=== PATIENT | female | born 1990 | race Asian ===

== ENCOUNTER → 2018-12-12 | Outpatient (CLI) | payer BC ==
[2018-12-14 22:07] LABS: CHLAMYDIA TRACHOMATIS, NAA Negative (Negative); NEISSERIA GONORRHOEAE, NAA Negative (Negative)
== END | disposition home or self-care (01) ==
LOC: LAB 17:18 → LAB SHORT 17:18
PROVIDERS: Obstetrics & Gynecology
DX: Z34.83 Encounter for supervision of other normal pregnancy, third trimester (principal); Z3A.36 36 weeks gestation of pregnancy
CPT/HCPCS: 87081; 87653

== ENCOUNTER 2019-01-08 20:18 | Inpatient (IN) | payer BC ==
[~2019-01-08] VITALS: Ht 149.9 cm; Wt 0.1 kg
[2019-01-08] MEDS ORDERED: AMOX250 PO (20:31)
[2019-01-08] MEDS ORDERED: Verotin-Gr Cap1 EACH PO (20:31)
[2019-01-08 21:04] LABS: BASOPHILS ABSOLUTE AUTO 0.05 K/mm3 (0.00-0.23); BASOPHILS PERCENT AUTO 1 % (0-2); EOSINOPHILS ABSOLUTE AUTO 0.08 K/mm3 (0.00-0.68); EOSINOPHILS PERCENT AUTO 1 % (0-6); Hematocrit 40.8 % (33.0-51.0); Hemoglobin 13.5 g/dL (11.5-16.0); IMMATURE GRAN ABSOLUTE AUTO 0.15 K/mm3 (0.00-0.10); IMMATURE GRAN PERCENT AUTO 2 % (0-1); LYMPHOCYTES PERCENT AUTO 20 % (21-46); MONOCYTES ABSOLUTE AUTO 0.71 K/mm3 (0.16-1.47); MONOCYTES PERCENT AUTO 7 % (4-13); Mean Corpuscular HGB Conc 33.1 g/dL (31.5-36.5); Mean Corpuscular Volume 94 fL (80-100); Mean Platelet Volume 9.1 fL (9.1-12.4); NEUTROPHILS ABSOLUTE AUTO 6.99 K/mm3 (1.96-9.15); NEUTROPHILS PERCENT AUTO 70 % (41-73); Platelet Count 211 K/mm3 (150-400); RDW Coefficient Variation 13.3 % (11.7-14.2); RDW Standard Deviation 46.3 fL (35.1-46.3); Red Blood Cell Count 4.35 M/mm3 (3.80-5.20); White Blood Cell Count 9.98 K/mm3 (4.00-11.30)
--- NOTE | 2019-01-09 21:04 | NUR ---
PT IS EMOTIONAL AFTER RECIEVING NEWS THAT HER COUSINS 7 MONTH OLD BABY TODAY. PT WOULD LIKE A SLEEPING PILL TONIGHT TO HELP HER REST.
--- NOTE | 2019-01-10 15:14 | NUR ---
ASSIST MOM HAS A HX OF BREAST AUGMENTATION DISCUSSED IMPORTANCE OF MONITORING CLOSELY FOR MASISITS AND BABY OUPUT. MOM TOOK THE CLASS AND REPORTS FEEDING IS GOING WELL.
[2019-01-11 12:04] LABS: PCO2 Cord - Arterial 48.1 mmHg (40-50); PO2 Cord - Arterial < 45 mmHg (16-20); pH Cord - Arterial 7.23 (7.28-7.35)
[2019-01-11 12:08] LABS: PCO2 Cord - Venous 40.2 mmHg (40-50); PO2 Cord - Venous 18.7 mmHg (28-32); pH Umbilical Cord - Venous 7.28 (7.26-7.35)
--- NOTE | 2019-01-11 12:16 | NUR ---
01/11/19 1216 Mackenzie Tian [id number] PT ARRIVED TO OR ON [facility] WITH CAIN CATHETER IN PLACE DRAINING DARK YELLOW WRINE
--- NOTE | 2019-01-11 12:55 | NUR ---
RESTING IN PACU. RESPONDS TO COMMANDS. COMFORTABLE. BABY IN NSY AT PRESENT
--- NOTE | 2019-01-11 16:43 | NUR ---
PT PUMPED AT 1600 BOTH SIDES FOR 20 MINUTES WITH PUMP BROUGHT FROM HOME. 2-3 ML EXPRESSED AND TAKEN TO NURSERY FOR NB.
--- NOTE | 2019-01-12 00:47 | NUR ---
RECIEVED REPORT FROM RIKY DASILVA AND EZRA DASILVA. ASSUMED PATIENT CARE AT [phone].
--- NOTE | 2019-01-12 05:21 | NUR ---
ASKED PATIENT IF SHE WAS WILLING TO TRY TO GET IN THE SHOWER. PATIENT STATES THAT SHE DOES NOT FEEL READY NOW AND WANTS TO TRY LATER IN THE DAY.
[2019-01-12 06:04] LABS: Hematocrit 29.8 % (33.0-51.0); Hemoglobin 9.9 g/dL (11.5-16.0); Mean Corpuscular HGB 30.8 pg (26.0-34.0); Mean Corpuscular HGB Conc 33.2 g/dL (31.5-36.5); Mean Corpuscular Volume 93 fL (80-100); Platelet Count 165 K/mm3 (150-400); RDW Coefficient Variation 13.9 % (11.7-14.2); RDW Standard Deviation 46.9 fL (35.1-46.3); Red Blood Cell Count 3.21 M/mm3 (3.80-5.20); White Blood Cell Count 13.16 K/mm3 (4.00-11.30)
[2019-01-12 06:26] LABS: BAND PERCENT MAN 40 % (0-8); BASOPHILS PERCENT MAN 0 % (0-2); EOSINOPHILS PERCENT MAN 0 % (0-6); LYMPHOCYTES ABSOLUTE MAN 1.57 K/mm3 (0.84-5.20); LYMPHOCYTES PERCENT MAN 12 % (21-46); MONOCYTES ABSOLUTE MAN 0.92 K/mm3 (0.16-1.47); MONOCYTES PERCENT MAN 7 % (4-13); NEUTROPHILS ABSOLUTE MAN 10.65 K/mm3 (1.96-9.15); SEG NEUTROPHILS PERCENT MAN 41 % (41-73); TOTAL CELLS COUNTED 100
--- NOTE | 2019-01-13 10:33 | NUR ---
ABD IS VERY DISTENDED, MILK OF MAG, COLACE AND SIMETHICONE GIVEN. PT STATES THAT ABD IS LESS DISTENDED THAN LAST NIGHT, STATES SHE FEEL LIKE ITS 'GETTING BETTER". RN WILL CONTINUE TO MONITOR AND REPORT TO PROVIDER.
[2019-01-13 13:00] LABS: BASOPHILS ABSOLUTE AUTO 0.06 K/mm3 (0.00-0.23); BASOPHILS PERCENT AUTO 0 % (0-2); Hemoglobin 9.6 g/dL (11.5-16.0); LYMPHOCYTES ABSOLUTE AUTO 1.15 K/mm3 (0.84-5.20); LYMPHOCYTES PERCENT AUTO 9 % (21-46); MONOCYTES ABSOLUTE AUTO 0.43 K/mm3 (0.16-1.47); MONOCYTES PERCENT AUTO 3 % (4-13); Mean Corpuscular HGB 31.9 pg (26.0-34.0); Mean Corpuscular HGB Conc 34.3 g/dL (31.5-36.5); Mean Corpuscular Volume 93 fL (80-100); Mean Platelet Volume 8.9 fL (9.1-12.4); Platelet Count 222 K/mm3 (150-400); RDW Standard Deviation 47.7 fL (35.1-46.3); Red Blood Cell Count 3.01 M/mm3 (3.80-5.20); White Blood Cell Count 13.39 K/mm3 (4.00-11.30)
[2019-01-13 13:03] LABS: EOSINOPHILS PERCENT AUTO 1 % (0-6); IMMATURE GRAN ABSOLUTE AUTO 0.24 K/mm3 (0.00-0.10); IMMATURE GRAN PERCENT AUTO 2 % (0-1); NEUTROPHILS ABSOLUTE AUTO 11.41 K/mm3 (1.96-9.15); NEUTROPHILS PERCENT AUTO 85 % (41-73)
[2019-01-13] MEDS ORDERED: AMOCLA500 PO (13:46)
--- NOTE | 2019-01-13 14:21 | NUR ---
PT DISCHARGED HOME. PRESCRIPTIONS FOR IBUPROFEN, PERCOCET AND AUGMENTIN GIVEN TO TO FILL. DISCHARGE INSTRUCTIONS REVIEWED WITH PT AND SO, BOTH VERBALIZED UNDERSTANDING AND DENY ANY FURTHER QUESTIONS OR CONCERNS. NO ACUTE DISTRESS NOTED.
== END 2019-01-13 15:50 | disposition home or self-care (01) | DRG 788 ==
LOC: BC 20:18
PROVIDERS: Nurse Practitioner Obstetrics & Gynecology; ADMIT Obstetrics & Gynecology
PROC: 6A550ZT Pheresis of Cord Blood Stem Cells, Single (ICD-10-PCS; 2019-01-11)
PROC: 10D00Z1 Extraction of Products of Conception, Low, Open Approach (ICD-10-PCS; principal; 2019-01-11 13:00)
DX: O48.0 Post-term pregnancy (principal); O62.2 Other uterine inertia; Z3A.40 40 weeks gestation of pregnancy; Z37.0 Single live birth
CPT/HCPCS: 36415; 51702; 82803; 85025; 88307; 88312; C9113; J0290; J0330; J0690; J0694; J1885; J2210; J2405; J2590; J2704; J2765; J3010; J7120

== ENCOUNTER 2019-01-15 15:05 | Observation (INO) | payer BC ==
[~2019-01-15] VITALS: Ht 149.9 cm; Wt 60.2 kg
[~2019-01-15 15:05] MED LIST: AMOCLA500 PO; AMOX250 PO; Verotin-Gr Cap1 EACH PO
--- NOTE | 2019-01-15 16:19 | NUR ---
PPFU VISIT. HAS MD INTERIANO APPT. ABDOMEN IS SWOLLEN TIGHT, BOWEL SOUNDS HEARD UPPER LEFT AND RIGHT QUANDRANTS ONLY. TAKING AUGMENTIN BID. MOTRIN 800MG 3X/DAY AND 1-2 PERCOCET Q4-5 HOURS, STILL QUITE PAINFUL. INCISION IS HEALING WELL, AREA ABOVE INCISION IS WARM TO TOUCH AND REDDENED, NOT BRIGHT RED THOUGH, APPROX 4X10 CM AREA. HAS HAD 101.9 TEMPS THE LAST 2 EVENINGS. TODAY HAS LOST HER APPETITE AND IS FEELING SOMEWHAT NAUSEATIOUS. HAD SALINE ENEMA THIS MORNING WITH SOME RESULTS AND HAS PASSED SOME FLATUS YESTERDAY. TAKING MILK OF MAGNESIA QPM, AND SENOKOT. MILK IS COMING IN, TRANSFERRED 15 GMS IN 15 MINUTES AT BREAST. TOOK ONLY 5CC OF OFFERED SNS FORMULA AND HE WAS SATISFIED. SHE HAS BEEN PUMPING FOR 10 MINUTES PC AND IS STILL GETTING ONLY A COUPLE CC OF EBM. INSTRUCT TO CONTINUE WITH SNS UNTIL SHE IS ABLE TO PUMP AT LEAST 15CC/BREAST AFTER A FEEDING. DR OCHOA NOTIFIED OF ASSESSMENT, ORDERS RECEIVED, TRANSFERRED TO ROOM 110 FOR OUTPATIENT IVF. QUESTIONS ANSWERED.
[2019-01-15 17:35] LABS: BASOPHILS ABSOLUTE AUTO 0.08 K/mm3 (0.00-0.23); BASOPHILS PERCENT AUTO 1 % (0-2); EOSINOPHILS ABSOLUTE AUTO 0.22 K/mm3 (0.00-0.68); EOSINOPHILS PERCENT AUTO 2 % (0-6); Hematocrit 30.7 % (33.0-51.0); Hemoglobin 9.9 g/dL (11.5-16.0); IMMATURE GRAN PERCENT AUTO 8 % (0-1); LYMPHOCYTES ABSOLUTE AUTO 1.78 K/mm3 (0.84-5.20); LYMPHOCYTES PERCENT AUTO 14 % (21-46); MONOCYTES ABSOLUTE AUTO 0.97 K/mm3 (0.16-1.47); MONOCYTES PERCENT AUTO 8 % (4-13); Mean Corpuscular HGB 30.7 pg (26.0-34.0); Mean Corpuscular HGB Conc 32.2 g/dL (31.5-36.5); Mean Corpuscular Volume 95 fL (80-100); Mean Platelet Volume 8.6 fL (9.1-12.4); NEUTROPHILS PERCENT AUTO 67 % (41-73); NRBC ABSOLUTE 0.03 K/mm3 (0.00-0.02); NRBC Auto 0.2 /100 WBC (0.0-0.2); Platelet Count 317 K/mm3 (150-400); RDW Standard Deviation 49.8 fL (35.1-46.3); Red Blood Cell Count 3.22 M/mm3 (3.80-5.20); White Blood Cell Count 12.35 K/mm3 (4.00-11.30)
[2019-01-15] MEDS ORDERED: Percocet 5-3251 EACH PO (18:10)
[2019-01-15] MEDS ORDERED: IBUP800 PO (18:11)
--- NOTE | 2019-01-15 18:22 | NUR ---
HERE FROM FOLLOW UP CLINIC. CONSTIPATION. ALSO STATES FEVER IN THE EVENING X 2 NIGHTS 101.
[2019-01-16 06:34] LABS: Hematocrit 25.1 % (33.0-51.0); Hemoglobin 8.2 g/dL (11.5-16.0); Mean Corpuscular HGB 30.5 pg (26.0-34.0); Mean Corpuscular HGB Conc 32.7 g/dL (31.5-36.5); Mean Corpuscular Volume 93 fL (80-100); Mean Platelet Volume 8.6 fL (9.1-12.4); NRBC ABSOLUTE 0.03 K/mm3 (0.00-0.02); NRBC Auto 0.3 /100 WBC (0.0-0.2); Platelet Count 288 K/mm3 (150-400); RDW Standard Deviation 47.8 fL (35.1-46.3); Red Blood Cell Count 2.69 M/mm3 (3.80-5.20); White Blood Cell Count 10.32 K/mm3 (4.00-11.30)
[2019-01-16 06:54] LABS: Alanine Aminotransfer (ALT/SGP 14 U/L (12-78); Albumin, Blood 1.6 g/dL (3.4-5.0); Albumin/Globulin Ratio 0.4 (0.8-1.8); Alk Phos 146 U/L (50-136); Anion Gap 4 mmol/L (6-16); Aspartate Aminotrans (AST/SGOT 19 U/L (12-37); Bilirubin, Total 0.4 mg/dL (0.1-1.0); Blood Urea Nitrogen 7 mg/dL (8-24); Bun/Creatinine Ratio 11.6 (12.0-20.0); CO2, Blood 26 mmol/L (21-32); Calcium, Blood 7.6 mg/dL (8.5-10.1); Chloride, Blood 108 mmol/L (98-108); Creatinine, Blood 0.61 mg/dL (0.40-1.00); Globulin, Blood 3.7 g/dL (2.2-4.0); Glomerular Filtration Rate >60 (60-); Glucose, Blood 68 mg/dL (70-99); Potassium, Blood 3.7 mmol/L (3.5-5.5); Sodium, Blood 138 mmol/L (136-145); Total Protein, Blood 5.3 g/dL (6.4-8.2)
[2019-01-16 06:56] LABS: BAND PERCENT MAN 5 % (0-8); BASOPHILS PERCENT MAN 0 % (0-2); EOSINOPHILS PERCENT MAN 2 % (0-6); LYMPHOCYTES ABSOLUTE MAN 1.23 K/mm3 (0.84-5.20); LYMPHOCYTES PERCENT MAN 12 % (21-46); MONOCYTES PERCENT MAN 2 % (4-13); MYELOCYTE PERCENT MAN 3 % (0-0); NEUTROPHILS ABSOLUTE MAN 8.35 K/mm3 (1.96-9.15); SEG NEUTROPHILS PERCENT MAN 76 % (41-73); TOTAL CELLS COUNTED 100
--- NOTE | 2019-01-16 09:13 | NUR ---
MD here, in room. Updated about loose, mix colored stool. Pt had reported "grumbling" in abdomen, bowel tones hypoactive. Pt had loose stool just prior to assessment at 0830. Denies other complaints at this time. Pt to d/c home.
--- NOTE | 2019-01-16 09:45 | NUR ---
Printed d/c instructions given to pt, reviewed. Deny additional questions/concerns at this time. Pt is going to feed nb and then d/c home.
[2019-01-16] MEDS ORDERED: Flagyl500 MG PO (23:36)
== END 2019-01-16 10:15 | disposition home or self-care (01) ==
LOC: OBS 15:05 → BC 17:26 → OBS 18:10 → BC 18:12
PROVIDERS: ADMIT Obstetrics & Gynecology
DX: O86.4 Pyrexia of unknown origin following delivery (principal); O99.63 Diseases of the digestive system complicating the puerperium; K56.7 Ileus, unspecified
CPT/HCPCS: 36415; 80053; 85025; 96365; 96366; G0378; J2543; J7120

== ENCOUNTER 2019-01-16 20:44 | Emergency (ER) | payer BC ==
[~2019-01-16] VITALS: Ht 149.9 cm; Wt 56.7 kg
[~2019-01-16 20:44] MED LIST changes: +IBUP800 PO; +Percocet 5-3251 EACH PO
[2019-01-16 21:56] LABS: Hematocrit 30.5 % (33.0-51.0); Mean Corpuscular HGB 31.1 pg (26.0-34.0); Mean Corpuscular HGB Conc 32.8 g/dL (31.5-36.5); Mean Corpuscular Volume 95 fL (80-100); Mean Platelet Volume 8.7 fL (9.1-12.4); NRBC ABSOLUTE 0.06 K/mm3 (0.00-0.02); NRBC Auto 0.5 /100 WBC (0.0-0.2); Platelet Count 400 K/mm3 (150-400); RDW Coefficient Variation 13.8 % (11.7-14.2); Red Blood Cell Count 3.22 M/mm3 (3.80-5.20); White Blood Cell Count 11.85 K/mm3 (4.00-11.30)
[2019-01-16 22:06] LABS: Source, Urine Clean Catch
[2019-01-16 22:11] LABS: Bilirubin, Urine Neg (Neg); Blood, Urine 3+ (Neg); Glucose Qualitative, Urine Neg (Neg); Ketones, Urine 2+ (Neg); Leukocyte Esterase, Urine 1+ (Neg); Nitrite, Urine Neg (Neg); Protein, Urine Neg (Neg); Specific Gravity, Urine 1.005 (1.003-1.022); Urobilinogen, Urine NORM (Normal)
[2019-01-16 22:21] LABS: BAND PERCENT MAN 12 % (0-8); BASOPHILS PERCENT MAN 0 % (0-2); EOSINOPHILS PERCENT MAN 0 % (0-6); LYMPHOCYTES ABSOLUTE MAN 1.65 K/mm3 (0.84-5.20); LYMPHOCYTES PERCENT MAN 14 % (21-46); MONOCYTES ABSOLUTE MAN 0.94 K/mm3 (0.16-1.47); MONOCYTES PERCENT MAN 8 % (4-13); NEUTROPHILS ABSOLUTE MAN 9.24 K/mm3 (1.96-9.15); SEG NEUTROPHILS PERCENT MAN 66 % (41-73); TOTAL CELLS COUNTED 100
[2019-01-16 22:26] LABS: Alanine Aminotransfer (ALT/SGP 16 U/L (12-78); Albumin, Blood 1.9 g/dL (3.4-5.0); Albumin/Globulin Ratio 0.4 (0.8-1.8); Alk Phos 170 U/L (50-136); Anion Gap 8 mmol/L (6-16); Aspartate Aminotrans (AST/SGOT 21 U/L (12-37); Bilirubin, Total 0.3 mg/dL (0.1-1.0); Blood Urea Nitrogen 7 mg/dL (8-24); Bun/Creatinine Ratio 10.9 (12.0-20.0); CO2, Blood 22 mmol/L (21-32); Calcium, Blood 8.2 mg/dL (8.5-10.1); Chloride, Blood 106 mmol/L (98-108); Creatinine, Blood 0.64 mg/dL (0.40-1.00); Globulin, Blood 4.5 g/dL (2.2-4.0); Glomerular Filtration Rate >60 (60-); Glucose, Blood 79 mg/dL (70-99); Sodium, Blood 136 mmol/L (136-145); Total Protein, Blood 6.4 g/dL (6.4-8.2)
[2019-01-16 22:32] LABS: Appearance, Urine Clear (Clear); Bacteria Few /hpf; Color, Urine Pale Yellow (P-Yellow); Red Blood Cells, Urine Rare /hpf (0-2); Squamous Epithelial Cells Rare /hpf (Few); Transitional Epithelial Cells Few /hpf (0-Rare)
[2019-01-16 22:33] LABS: Troponin I <0.015 ng/mL (0.000-0.040)
[2019-01-16 22:34] LABS: Triiodothyronine, Free 2.25 pg/mL (2.18-3.98)
[2019-01-16] MEDS ORDERED: Flagyl500 MG PO (23:36)
== END 2019-01-17 00:55 | disposition home or self-care (01) ==
LOC: ER 20:44
PROVIDERS: Emergency Medicine
DX: O86.00 Infection of obstetric surgical wound, unspecified (principal); B96.89 Other specified bacterial agents as the cause of diseases classified elsewhere; Z79.899 Other long term (current) drug therapy
CPT/HCPCS: 36415; 71045; 71260; 74177; 80053; 81001; 83605; 83880; 84439; 84443; 84481; 84484; 85025; 87086; 93005; 93010; 96365-59; 96368; 99284-25; J2543; P9612; Q9967

== ENCOUNTER → 2021-04-05 | Outpatient (CLI) | payer BC ==
[~2021-04-05] MED LIST changes: +Flagyl500 MG PO
== END | disposition home or self-care (01) ==
LOC: LAB 16:21 → LAB SHORT 16:21
DX: O09.892 Supervision of other high risk pregnancies, second trimester (principal)
CPT/HCPCS: 87081; 87150

== ENCOUNTER 2021-04-30 05:07 | Inpatient (IN) | payer BC ==
[~2021-04-30] VITALS: Ht 152.4 cm; Wt 58.2 kg
[2021-04-30 05:56] LABS: BASOPHILS ABSOLUTE AUTO 0.04 K/mm3 (0.00-0.23); BASOPHILS PERCENT AUTO 1 % (0-2); EOSINOPHILS PERCENT AUTO 1 % (0-6); Hematocrit 36.3 % (33.0-51.0); Hemoglobin 11.9 g/dL (11.5-16.0); IMMATURE GRAN ABSOLUTE AUTO 0.13 K/mm3 (0.00-0.10); IMMATURE GRAN PERCENT AUTO 2 % (0-1); LYMPHOCYTES ABSOLUTE AUTO 2.58 K/mm3 (0.84-5.20); LYMPHOCYTES PERCENT AUTO 29 % (21-46); MONOCYTES ABSOLUTE AUTO 0.63 K/mm3 (0.16-1.47); MONOCYTES PERCENT AUTO 7 % (4-13); Mean Corpuscular HGB 29.9 pg (26.0-34.0); Mean Corpuscular HGB Conc 32.8 g/dL (31.5-36.5); Mean Corpuscular Volume 91 fL (80-100); Mean Platelet Volume 8.8 fL (9.1-12.4); NEUTROPHILS ABSOLUTE AUTO 5.29 K/mm3 (1.96-9.15); NEUTROPHILS PERCENT AUTO 60 % (41-73); Platelet Count 250 K/mm3 (150-400); RDW Coefficient Variation 15.6 % (11.7-14.2); RDW Standard Deviation 50.6 fL (35.1-46.3); Red Blood Cell Count 3.98 M/mm3 (3.80-5.20); White Blood Cell Count 8.77 K/mm3 (4.00-11.30)
--- NOTE | 2021-04-30 07:54 | NUR ---
04/30/21 0754 Jessica Gregg 2G GIVEN AT 0724 STARTED BY BROWN HINES
--- NOTE | 2021-04-30 14:13 | NUR ---
PT HAVING BREAK THRU PAIN, DR BECKER UPDATED, ROXICODONE 5MG GIVEN NOW
--- NOTE | 2021-04-30 15:03 | NUR ---
REPT TO Jacqueline IVERSON RN
--- NOTE | 2021-04-30 15:12 | NUR ---
Assumed care from Marlon Tian RN
--- NOTE | 2021-04-30 15:56 | NUR ---
Pt resting comfortably with nb skin to skin. Denies needs at this time.
[2021-05-01 05:56] LABS: BASOPHILS ABSOLUTE AUTO 0.04 K/mm3 (0.00-0.23); BASOPHILS PERCENT AUTO 0 % (0-2); EOSINOPHILS ABSOLUTE AUTO 0.16 K/mm3 (0.00-0.68); EOSINOPHILS PERCENT AUTO 1 % (0-6); Hematocrit 34.8 % (33.0-51.0); Hemoglobin 11.3 g/dL (11.5-16.0); IMMATURE GRAN PERCENT AUTO 1 % (0-1); LYMPHOCYTES ABSOLUTE AUTO 2.43 K/mm3 (0.84-5.20); LYMPHOCYTES PERCENT AUTO 19 % (21-46); MONOCYTES ABSOLUTE AUTO 0.76 K/mm3 (0.16-1.47); MONOCYTES PERCENT AUTO 6 % (4-13); Mean Corpuscular HGB 29.1 pg (26.0-34.0); Mean Corpuscular HGB Conc 32.5 g/dL (31.5-36.5); Mean Corpuscular Volume 90 fL (80-100); Mean Platelet Volume 8.8 fL (9.1-12.4); NEUTROPHILS ABSOLUTE AUTO 9.64 K/mm3 (1.96-9.15); NEUTROPHILS PERCENT AUTO 73 % (41-73); Platelet Count 225 K/mm3 (150-400); RDW Coefficient Variation 15.5 % (11.7-14.2); RDW Standard Deviation 50.2 fL (35.1-46.3); Red Blood Cell Count 3.88 M/mm3 (3.80-5.20); White Blood Cell Count 13.13 K/mm3 (4.00-11.30)
[2021-05-01] MEDS ORDERED: DOCU100 PO (15:22)
[2021-05-01] MEDS ORDERED: OXAYDO5 M1 PO (15:23)
[2021-05-01] MEDS ORDERED: IBUP800 PO (15:23)
[2021-05-01] MEDS ORDERED: LANOLIN40 GM TOP (15:23)
--- NOTE | 2021-05-01 18:30 | NUR ---
PRINTED D/C INSTRUCTIONS REVIEWED W/PT. VERBALIZED UNDERSTANDING, DENIES ADDITIONAL QUESTIONS OR CONCERNS. PT AWARE SHE MAY DISCHARGE HOME AFTER PASSING GAS.
[2021-05-02 08:25] LABS: BASOPHILS ABSOLUTE AUTO 0.04 K/mm3 (0.00-0.23); BASOPHILS PERCENT AUTO 0 % (0-2); EOSINOPHILS ABSOLUTE AUTO 0.13 K/mm3 (0.00-0.68); EOSINOPHILS PERCENT AUTO 1 % (0-6); Hematocrit 38.2 % (33.0-51.0); Hemoglobin 12.4 g/dL (11.5-16.0); IMMATURE GRAN ABSOLUTE AUTO 0.08 K/mm3 (0.00-0.10); IMMATURE GRAN PERCENT AUTO 1 % (0-1); LYMPHOCYTES PERCENT AUTO 19 % (21-46); MONOCYTES ABSOLUTE AUTO 0.43 K/mm3 (0.16-1.47); MONOCYTES PERCENT AUTO 4 % (4-13); Mean Corpuscular HGB 29.7 pg (26.0-34.0); Mean Corpuscular HGB Conc 32.5 g/dL (31.5-36.5); Mean Corpuscular Volume 92 fL (80-100); Mean Platelet Volume 8.7 fL (9.1-12.4); NEUTROPHILS ABSOLUTE AUTO 8.95 K/mm3 (1.96-9.15); NEUTROPHILS PERCENT AUTO 76 % (41-73); Platelet Count 247 K/mm3 (150-400); RDW Coefficient Variation 15.9 % (11.7-14.2); RDW Standard Deviation 52.8 fL (35.1-46.3); Red Blood Cell Count 4.17 M/mm3 (3.80-5.20); White Blood Cell Count 11.83 K/mm3 (4.00-11.30)
[2021-05-02 08:46] LABS: Alanine Aminotransfer (ALT/SGP 15 U/L (12-78); Albumin, Blood 2.5 g/dL (3.4-5.0); Albumin/Globulin Ratio 0.6 (0.8-1.8); Alk Phos 140 U/L (50-136); Anion Gap 6 mmol/L (6-16); Aspartate Aminotrans (AST/SGOT 27 U/L (12-37); Bilirubin, Total 0.3 mg/dL (0.1-1.0); Blood Urea Nitrogen 11 mg/dL (8-24); Bun/Creatinine Ratio 18.3 (12.0-20.0); CO2, Blood 26 mmol/L (21-32); Calcium, Blood 8.2 mg/dL (8.5-10.1); Chloride, Blood 107 mmol/L (98-108); Globulin, Blood 4.3 g/dL (2.2-4.0); Glomerular Filtration Rate >60 (60-); Glucose, Blood 72 mg/dL (70-99); Potassium, Blood 3.9 mmol/L (3.5-5.5); Sodium, Blood 139 mmol/L (136-145); Total Protein, Blood 6.8 g/dL (6.4-8.2)
--- NOTE | 2021-05-02 10:39 | NUR ---
Pt up in br, reports she has passed a large amount of gas. will check back when out of br.
--- NOTE | 2021-05-02 12:15 | NUR ---
Pt reports feeling much better after passing gas, desires to d/c home. IV d/c'd. ID bands matched w/nb. Pt denies additional questions/concerns. Pt d/c'd ambulatory to care of .
== END 2021-05-02 12:21 | disposition home or self-care (01) | DRG 787 ==
LOC: BC 05:07
PROVIDERS: Family Medicine; ADMIT Obstetrics & Gynecology
PROC: 10D00Z1 Extraction of Products of Conception, Low, Open Approach (ICD-10-PCS; principal; 2021-04-30 07:30)
DX: O34.211 Maternal care for low transverse scar from previous cesarean delivery (principal); K56.7 Ileus, unspecified; Z20.822 Contact with and (suspected) exposure to COVID-19; O99.63 Diseases of the digestive system complicating the puerperium; Z3A.39 39 weeks gestation of pregnancy; Z37.0 Single live birth
CPT/HCPCS: 36415; 74019; 80053; 85025; 86850; 86900; 86901; A9270; J0690; J1885; J2210; J2370; J2405; J2590; J2765; J7120; U0004

== ENCOUNTER → 2024-09-18 | Outpatient (CLI) | payer OTHER ==
[~2024-09-18] MED LIST changes: +DOCU100 PO; +LANOLIN40 GM TOP; +OXAYDO5 M1 PO
[2024-09-27 05:31] LABS: HPV HIGH RISK BY TMA Not Detected; HPV SOURCE Cervical
== END | disposition home or self-care (01) ==
LOC: LAB SHORT 12:26 → LAB 12:26
PROVIDERS: Obstetrics & Gynecology
DX: Z01.419 Encounter for gynecological examination (general) (routine) without abnormal findings (principal)
CPT/HCPCS: 87624; G0123